=== PATIENT | male | born 1955 | race Caucasian/White ===

== ENCOUNTER 2021-12-13 04:27 | Day surgery (SDC) | payer OTHER ==
[2021-12-13 10:34] VITALS: TEMP 98
[2021-12-13 10:39] VITALS: PULSE 53
[2021-12-13 11:16] VITALS: BP 111/65; RESP 16
== END 2021-12-13 11:07 | disposition home or self-care (01) ==
LOC: JASU-ENDO 04:27
PROVIDERS: ATTEND Internal Medicine Gastroenterology
PROC: 0DBP8ZX Excision of Rectum, Via Natural or Artificial Opening Endoscopic, Diagnostic (ICD-10-PCS; principal; 2021-12-13 10:00)
DX: Z12.11 Encounter for screening for malignant neoplasm of colon (principal); K62.1 Rectal polyp; R19.5 Other fecal abnormalities
CPT/HCPCS: 88305-TC